=== PATIENT | male | born 1995 | race Caucasian/White ===

== ENCOUNTER 2017-12-27 11:30 | Emergency (ER) | payer OTHER ==
[2017-12-27 11:33] VITALS: BP 122/62; PULSE 68; RESP 20; TEMP 98.6; O2SAT 99
--- NOTE | 2017-12-27 12:09 | PD ---
HPI Chief Complaint: Facial Pain or Swelling Time Seen by Provider: 11:55 Travel History International Travel<30 days: No Contact w/Intl Traveler<30days: No Traveled to known affect area: No History of Present Illness HPI 22 y male presents emergency department for evaluation of right-sided jaw pain after an ice skating incident that occurred last night. Says that he went to urgent care where he had a laceration repair of his chin but continues to have right jaw pain so decided to come in for evaluation. Says he is having trouble chewing, fully opening and full to closing his jaw because of the pain. Says the pain is focused on the joint without radiation. Says he took ibuprofen which did decrease his symptoms. He does not believe that his pain is getting worse but is not improving so he was concerned about a fracture. [facility] Past Medical History Medical History: Denies Significant Hx Weight (Kg): 3 Cardiovascular Problems: No Headaches: Yes (Frequent at times ) Psychiatric: Yes (ADHD ODD) Seizures: No Tetanus Vaccination: < 5 Years Influenza Vaccination: Yes Past Surgical History Section: No Other Surgery: Yes (LYNPH NODE REMOVAL ) Social History Alcohol Use: No Tobacco Use: No Substance Use: No Allergies-Medications (Allergen,Severity, Reaction): Coded Allergies: penicillin G (Unverified Allergy, Severe, Swelling, 12/27/17) amoxicillin (Unverified Adverse Reaction, Severe, SOB, 12/27/17) Reported Meds & Prescriptions Reported Meds & Active Scripts Active No Active Prescriptions or Reported Medications Review of Systems Except as stated in HPI: all other systems reviewed are Neg Physical Exam Narrative GENERAL: Well-nourished, well-developed patient, in NAD SKIN: Focused skin assessment warm/dry. No rashes or lesions. Repair laceration in place lower chin not surrounding edema or erythema HEAD: Normocephalic. Atraumatic. EYES: No scleral icterus. No injection or drainage. PERRLA, EOMI THROAT: No pharyngeal injection, exudates, or tonsillar hypertrophy. Airway is patent. NECK: Supple, trachea midline. No JVD or lymphadenopathy. No meningismus. No midline tenderness TMJ- no clicking or popping, jaw tracks normally. No edema or erythema to the area. There is tenderness palpation of the joint line. CARDIOVASCULAR: Regular rate and rhythm without murmurs, gallops, or rubs. RESPIRATORY: Breath sounds equal bilaterally. No accessory muscle use. No wheezes, rales, or rhonchi MUSCULOSKELETAL: No cyanosis, or edema. BACK: Nontender without obvious deformity. No CVA tenderness. Data Data Last Documented VS Vital Signs Date Time Temp Pulse Resp B/P (MAP) Pulse Ox O2 Delivery O2 Flow Rate FiO2 12/27/17 11:33 98.6 68 20 122/62 (82) 99 MDM Medical Decision Making Medical Screen Exam Complete: Yes Emergency Medical Condition: No Differential Diagnosis Jaw contusion, jaw fracture, bursitis, muscle spasms Narrative Course 22 y male presents emergency department for evaluation of right-sided jaw pain after an ice skating incident that occurred last night. Says that he went to urgent care where he had a laceration repair of his chin but continues to have right jaw pain so decided to come in for evaluation. Says he is having trouble chewing, fully opening and full to closing his jaw because of the pain. Says the pain is focused on the joint without radiation. Says he took ibuprofen which did decrease his symptoms. He does not believe that his pain is getting worse but is not improving so he was concerned about a fracture. Vital signs are stable. The exam findings consistent with bursitis versus contusion of the jaw. Patient has limited range of motion of the jaw however, tracks normally and is only restricted by his pain. There is no evidence of fracture as patient is not tenderness palpation of the jawline. No clicks or pops. No significant edema to the area. Advised patient that if his pain worsen or persist he should return for possible imaging studies. A medical screening exam was performed: At the time of evaluation the presenting medical condition was determined not to be of an emergent nature. The patient was given the option of receiving additional care, but declined. Patient was given options for additional community resources from which to obtain care. The Patient Has Been advised to seek medical attention for their presenting complaint. The patient has been advised to return to the ER at any time if an emergent condition develops. Diagnosis Primary Impression: Contusion of jaw Qualified Codes: S00.83XA - Contusion of other part of head, initial encounter Referrals: Primary Care Physician Scripts No Active Prescriptions or Reported Meds Disposition: 01 DISCHARGE HOME Condition: Stable [place] Jon Dec 27, 2017 12:09
== END 2017-12-27 12:13 | disposition left against medical advice (07) ==
LOC: PHEFT 11:30
DX: S00.83XD Contusion of other part of head, subsequent encounter (principal); S01.81XD Laceration without foreign body of other part of head, subsequent encounter; X58.XXXD Exposure to other specified factors, subsequent encounter; Y93.21 Activity, ice skating; F90.9 Attention-deficit hyperactivity disorder, unspecified type
CPT/HCPCS: 99281